=== PATIENT | male | born 1995 | race Caucasian/White ===

== ENCOUNTER 2022-07-05 09:07 | Emergency (ER) | payer MEDICAID ==
[~2022-07-05] VITALS: Ht 177.8 cm; Wt 90.7 kg
[2022-07-05 09:11] VITALS: BP_SYST 136
--- NOTE | 2022-07-05 09:20 | NUR ---
Triaged pt and placed in waiting room. Pt stable.
--- NOTE | 2022-07-05 10:35 | NUR ---
Patient to ER bed 4 to gown for evaluation. Side rails up. Report given to Joshua KAPLAN.
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
--- NOTE | 2022-07-05 10:59 | NUR ---
DUSTIN Murray at bedside examining patient.
[2022-07-05] MEDS ORDERED: IBUPROFEN 600 MG TABLET PO ONE (12:00)
[2022-07-05] MEDS ORDERED: BACITRACIN 1 GM OINT TP ONE (14:30)
[2022-07-05] MEDS ORDERED: IBUP-1969 PO (14:53)
[2022-07-05 15:04] VITALS: BP_SYST 121
--- NOTE | 2022-07-05 15:06 | NUR ---
Patient given written and verbal discharge instructions and verbalizes understanding. ER Dr. Terri HUNTER discussed with patient the results and treatment provided. Patient in stable condition. ID arm band removed. IV catheter removed intact and dressing applied, no active bleeding. Rx of Ibuprofen given. Patient educated on pain management and to follow up with PMD. Pain Scale 5/10. Opportunity for questions provided and answered. Medication side effect fact sheet provided.
== END 2022-07-05 15:05 | disposition home or self-care (01) ==
LOC: SED 09:07
DX: S43.402A Unspecified sprain of left shoulder joint, initial encounter (principal); S50.312A Abrasion of left elbow, initial encounter; G56.92 Unspecified mononeuropathy of left upper limb; Z79.899 Other long term (current) drug therapy; W22.8XXA Striking against or struck by other objects, initial encounter; Y93.89 Activity, other specified; Y92.89 Other specified places as the place of occurrence of the external cause; Y99.8 Other external cause status
CPT/HCPCS: 71046-TC; 73030; 99284